=== PATIENT | male | born 1940 | race Caucasian/White ===

== ENCOUNTER 2016-08-18 07:02 | Inpatient (IN) | payer MEDICARE ==
--- NOTE | ~2016-08-18 | DS ---
Discharge Summary [facility] [address] [place]. [address] NAME: LORENZO REGAN : 42 STATUS : DIS IN PAT#: [id number] AGE: 76 ADM/REG DATE : 08/18/16 MR#: [id number] REPORT SERV DATE: 08/23/16 DICTATED BY: ALF HI DATE: 08/23/16 REPORT STATUS : Draft TRANSCRIBED BY: MODL DATE: 08/23/16 ADMISSION DATE: 08/18/2016 DISCHARGE DATE: 08/23/2016 DISCHARGE DIAGNOSES: 1. Small-bowel obstruction, present on admission, resolved. 2. Atrial fibrillation with rapid ventricular response, resolved. 3. Episodes of nonsustained ventricular tachycardia. 4. Coronary artery disease. 5. Hypertension. CONSULTS: 1. General Surgery. 2. Cardiology. PROCEDURES AND IMAGING: Cardiac cath performed on 08/23/2016 was grossly negative. 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 HOSPITAL COURSE: This is a 76-year-old gentleman who was initially admitted with diagnosis of a small-bowel obstruction. For details, please refer to H and P by Dr. Perez, dated 08/18/2016. In summary, the patient was managed conservatively and fortunately, the patient's small bowel obstruction did resolve spontaneously with conservative care alone. The patient was seen by General Surgery, who agreed with conservative management. As the patient was being discharged home on the third day of the hospital stay, the patient actually had a few runs of ventricular tachycardia and then went into atrial fibrillation with RVR. Of note, the patient does have a history of chronic atrial fibrillation. The patient was seen by Cardiology, who decided to perform a cardiac cath, as the patient was having episodes of runs of ventricular tachycardia. The cardiac cath was performed today, 08/23/2016, which was grossly negative. The patient's atrial fibrillation was better controlled and since the patient's ventricular tachycardia were all nonsustained, it was felt that he was still safe for discharge home with close outpatient followup. Otherwise, the patient has stayed hemodynamically stable throughout the entire hospital stay. DISCHARGE MEDICATIONS: No changes. DISPOSITION: Home. FOLLOWUP: 1. Please follow up with PCP in the next one to two weeks. 2. Please follow up with Cardiology in the next one to two weeks. A total of 30 minutes spent in coordinating this patient's discharge today. [facility] [place] Discharge Summary [place] [address] [place] [address] NAME: LORENZO REGAN : 42 STATUS : DIS IN PAT#: [id number] AGE: 76 ADM/REG DATE : 08/18/16 MR#: [id number] REPORT SERV DATE: 08/23/16 DICTATED BY: ALF HI DATE: 08/23/16 REPORT STATUS : Draft TRANSCRIBED BY: RENATO DATE: 08/23/16 Alf Hi MD / [id number] CC: MD Leno Munoz
--- NOTE | ~2016-08-18 | CN ---
Consultation Report [facility] [address] [place]. [address] NAME: LORENZO GONZALEZ : 42 STATUS : ADM IN PAT#: [id number] AGE: 76 ADM/REG DATE : 08/18/16 MR#: [id number] REPORT SERV DATE: 08/18/16 DICTATED BY: MARLO JOHNSON DATE: 08/18/16 REPORT STATUS : Draft TRANSCRIBED BY: MODL DATE: 08/18/16 CONSULT NOTE DATE OF CONSULTATION: REFERRING PHYSICIAN: Dr. Perez. CONSULTING PHYSICIAN: Dr. Johnson. REASON FOR CONSULT: Small bowel obstruction. HISTORY OF PRESENT ILLNESS: Mr. Gonzalez is a very pleasant 76-year-old gentleman, with a significant medical history of coronary artery disease and insulin-dependent diabetes. He states he is feeling well until approximately 10 o'clock last night. He ate dinner normally. He had two bowel movements yesterday. Around 10 o'clock he started to have some pain. He laid down, and then the pain progressed. Around 4 o'clock in the morning, he had significant nausea and vomiting. He has had no diarrhea. He denies any fever or chills. He has not vomited since he has been here, but he states he is still nauseated. His only past surgical history, abdominal surgery is from an appendectomy over 30 years ago. PAST MEDICAL HISTORY: Insulin-dependent diabetes, coronary artery disease with valve replacement, and hypertension. PAST SURGICAL HISTORY: Coronary artery bypass with multiple stent placements and open appendectomy. MEDICATIONS: Tylenol, albuterol, Tums, Flexeril, Cardizem, insulin, iron, hydralazine, Combivent, Isordil, Cozaar, metformin, Zaroxolyn, Toprol, Singulair, Nitrostat, Percocet, OxyContin, Protonix, Xarelto, Crestor, Brilinta, Restoril, and Demadex. FAMILY HISTORY: Coronary artery disease. SOCIAL HISTORY: The patient stopped smoking in 1997. Drinks on occasion. REVIEW OF SYSTEMS: Other than those described above. He has been in his normal state of health and system review was negative. PHYSICAL EXAMINATION: VITAL SIGNS: He is afebrile. Vital signs are stable. GENERAL: He is awake, alert, and pleasant 76-year-old gentleman. HEENT: Grossly normal. NECK: Supple. No palpable masses. HEART: Regular rate and rhythm. Consultation Report [place] [address] [place]. [address] NAME: LORENZO GONZALEZ : 42 STATUS : [facility]#: [id number] AGE: 76 ADM/REG DATE : 08/18/16 MR#: [id number] REPORT SERV DATE: 08/18/16 DICTATED BY: MARLO JOHNSON DATE: 08/18/16 REPORT STATUS : Draft TRANSCRIBED BY: RENATO DATE: 08/18/16 LUNGS: Clear. ABDOMEN: Soft, mildly distended. No peritoneal signs. No masses. No hernias. EXTREMITIES: Show no cyanosis, clubbing, or edema. NEUROLOGIC: Exam is grossly intact. LABORATORY AND DIAGNOSTIC DATA: CT of the abdomen which I have reviewed, shows some distended small bowel, as well as some moderately decompressed distal small bowel. There were no inflammatory changes. There was a significant amount of stool within the colon with a decompressed distal colon. Laboratories reviewed. IMPRESSION: A 76-year-old with the above-mentioned medical issues, now with what sounds like an early small bowel obstruction. He is currently feeling much better. Hopefully, this will resolve without surgical intervention given all his medical history as well as blood thinners. At this point, we are going to hold his blood thinners. We will place an NG tube if his nausea and vomiting continues. If he is not feeling better tomorrow, we will plan a small-bowel follow-through. All this was discussed with him in detail. CAROL/RENATO Marlo Johnson M.D. / [id number] CC: Smith Rosas MICHAEL
--- NOTE | ~2016-08-18 | CN ---
Consultation Report [facility] [address] [place]. [address] NAME: LORENZO REGAN : 42 STATUS : ADM IN PAT#: [id number] AGE: 76 ADM/REG DATE : 08/18/16 MR#: [id number] REPORT SERV DATE: 08/20/16 DICTATED BY: DON MURDOCK DATE: 08/20/16 REPORT STATUS : Draft TRANSCRIBED BY: MODL DATE: 08/20/16 CARDIOLOGY CONSULTATION DATE OF CONSULTATION: 08/20/2016 REASON FOR CONSULTATION: Atrial fibrillation with RVR. HISTORY OF PRESENT ILLNESS: The patient is a pleasant 76-year-old gentleman with a history of coronary artery disease and chronic atrial fibrillation, who was admitted on 08/18/2016 for a small bowel obstruction. The patient had been doing well in his usual state of health when he began having some abdominal pain which progressed and then he developed severe nausea and vomiting. CT scan showed a probable small bowel obstruction. General Surgery was consulted. Fortunately, however, his symptoms have since resolved and no surgical intervention was needed. The patient had some elevated heart rates with the current illness which required a diltiazem drip for rate control. Currently, he is back on his regular home medications including Xarelto, Cardizem CD, and Toprol. Cardizem drip has been reduced to 2.5 mg/hour and his rate is controlled in the 90s. PAST MEDICAL HISTORY: Includes coronary artery disease, status post coronary artery bypass surgery in 1988 with redo in 2001 as well as subsequent stenting. He also has a history of hypertension, hyperlipidemia, chronic atrial fibrillation, type 2 diabetes, COPD, and peripheral vascular disease. PAST SURGICAL HISTORY: Includes the above-mentioned bypass surgeries as well as cardiac stenting. His last cardiac catheterization was done on 11/06/2015, which showed patent grafts to the LAD, second diagonal branch and right posterior descending branch with an acute occlusion of previously stented proximal saphenous vein graft to the posterior lateral branch. The patient underwent successful recanalization and stenting of this graft at that time. SOCIAL HISTORY: The patient quit smoking in 1997. The patient is and helps care for his with Parkinson's. FAMILY HISTORY: Positive for coronary artery disease. REVIEW OF SYSTEMS: The patient reports abrupt onset of nausea and vomiting, but denies any diarrhea or dysuria. Symptoms have since resolved. He reports occasional palpitations with some mild shortness of breath, but nothing progressive. No presyncope or syncope. No recent cough, fever, chills, wheezing, or sputum production. PHYSICAL EXAMINATION: VITAL SIGNS: Blood pressure is 178/81, heart rate is 86 and irregular, and respirations are 16 and unlabored. The patient is afebrile. Consultation Report [place] [address] [place]. [address] NAME: LORENZO REGAN : 42 STATUS : ADM IN PAT#: [id number] AGE: 76 ADM/REG DATE : 08/18/16 MR#: [id number] REPORT SERV DATE: 08/20/16 DICTATED BY: DON MURDOCK DATE: 08/20/16 REPORT STATUS : Draft TRANSCRIBED BY: RENATO DATE: 08/20/16 GENERAL APPEARANCE: The patient is a well-developed, well-nourished white male, in no distress. HEENT: Unremarkable. NECK: Shows no jugular venous distention with good carotid upstroke. CHEST: Clear to auscultation bilaterally. CARDIOVASCULAR: PMI is nondisplaced. S1 is variable, S2 is narrowly split. No gallop is present. ABDOMEN: Soft and nontender with positive bowel sounds. EXTREMITIES: Show no cyanosis, clubbing, or edema. SKIN: Warm and dry with no pallor or icterus. NEURO/PSYCH: The patient is alert and oriented x3 with appropriate affect. LABORATORY AND DIAGNOSTIC DATA: EKG shows atrial fibrillation at a rate of 83 beats per minute with an inferior scar and nonspecific ST-T changes. Chemistry panel from yesterday 08/19/2016 shows a sodium of 142, potassium 4.0, BUN 18, creatinine 0.92. CBC from yesterday shows a white count of 11.6, hemoglobin 8.9, hematocrit 27.8, and platelets 347. The patient had an echocardiogram done last year 11/08/2015, which showed an ejection fraction of 50% as well as dilated left atrium at 5 cm, mild to moderate mitral regurgitation, but otherwise unremarkable. IMPRESSION: 1. Chronic atrial fibrillation with rapid ventricular response in the setting of acute illness. 2. Stable coronary artery disease. 3. Small bowel obstruction, which has resolved. 4. Hypertension. 5. Hyperlipidemia. 6. Diabetes mellitus type 2. 7. Chronic obstructive pulmonary disease. 8. Peripheral vascular disease. PLAN: 1. The patient's home medications of Toprol-XL 25 mg b.i.d., as well as diltiazem CD 240 mg daily have been resumed along with his Xarelto and Brilinta. We will stop the Cardizem drip at this time and watch the patient's heart rate. He does have a history of bradycardia with higher doses of beta blockers, but has done relatively well on low- dose Toprol. He has also seen hospital coordinator, Dr. Oleg Gan, in the past who did not recommend invasive intervention or pacemaker placement at that time. 2. We will monitor the patient's heart rate today off the Cardizem drip and hopefully he will be stable for discharge this evening or tomorrow morning. Thank you very much for this consultation. Consultation Report [place] [id number] [facility] [place]. [address] NAME: LORENZO REGAN : 42 STATUS : ADM IN PAT#: [id number] AGE: 76 ADM/REG DATE : 08/18/16 MR#: [id number] REPORT SERV DATE: 08/20/16 DICTATED BY: DON MURDOCK DATE: 08/20/16 REPORT STATUS : Draft TRANSCRIBED BY: RENATO DATE: 08/20/16 INOCENTE/RENATO Don Murdock NP / [id number] CC: Smith Rosas,SHANTANU Lackey M.D., F.A.C.C.
--- NOTE | ~2016-08-18 | HP ---
History And Physical [place] [id number] [facility] [place]. [address] NAME: LORENZO REGAN : 42 STATUS : ADM IN PAT#: [id number] AGE: 76 ADM/REG DATE : 08/18/16 MR#: [id number] REPORT SERV DATE: 08/18/16 DICTATED BY: ALVINA SOL DATE: 08/18/16 REPORT STATUS : Draft TRANSCRIBED BY: MODL DATE: 08/18/16 DATE OF ADMISSION: 08/18/2016 CHIEF COMPLAINT: Small bowel obstruction. HISTORY OF PRESENT ILLNESS: The patient is a 76-year-old male whose past medical history is significant for coronary artery disease, atrial fibrillation, diabetes mellitus, osteoarthritis, and previous history of vascular disease. He presents today with abdominal pain. He states his symptoms began last evening approximately 10 o'clock. He had had some p.o. intake, went to bed. States he may have had a very small bowel movement at approximately 10:00 p.m. He had a normal large bowel movement at 10:00 a.m. that day. Last evening, he started having some mild cramping when he went to bed. He woke up at approximately 4 or 4:30 this morning with intense pain, cramping, multiple bouts of emesis described as bilious with the later episodes described as undigested food. He is very explicit that he has not had any bowel movement or passed any gas since 10 o'clock last evening. When his symptoms became more severe this morning, he presented to the emergency department. CT scan has noted a small bowel obstruction. The patient states he has had a remote appendectomy as his only abdominal surgery. His cardiac history, although extensive has been relatively stable. Today, he presents with continued nausea, abdominal pain, and white count of 18,000. PAST MEDICAL HISTORY: As covered above. PAST SURGICAL HISTORY: He has had multiple cardiac interventions and stents in the past. CURRENT MEDICATIONS: Tylenol, albuterol inhaler, vitamin C, aspirin 81, Tums, Flexeril 10 daily, Cardizem 240 daily, Radha 0.5/0.4 one per day, iron 325 b.i.d., hydralazine 25 daily, Lantus 10 at bedtime and 15 in the morning, Humalog sliding scale, Combivent inhaler one puff twice daily, Isordil 30, Cozaar 100, metformin 1000 b.i.d., Zaroxolyn 5, Toprol-XL 25 b.i.d., Singulair 10, multivitamin, Nitrostat 0.4, Percocet 5/325 b.i.d., OxyContin 10 at bedtime, Protonix 40, Xarelto 20, Crestor 10, [place] Nasal [place], Refresh eyedrops, Restoril 30, Brilinta 90 b.i.d., Demadex 20, and vitamin B complex with C. ALLERGIES: TO ALDOMET. FAMILY HISTORY: Both parents are . Father had complications of infection from an epidural. Mother from heart problems in her late 80s. SOCIAL HISTORY: Social drinker. Previous smoker, has quit for sometime. REVIEW OF SYSTEMS: HEENT: Negative. CARDIOVASCULAR: Negative. PULMONARY: Negative. GI: As covered in above. : Negative. History And Physical [address] [address] NAME: LORENZO REGAN : 42 STATUS : ADM IN [facility]#: [id number] AGE: 76 ADM/REG DATE : 08/18/16 MR#: [id number] REPORT SERV DATE: 08/18/16 DICTATED BY: ALVINA SOL DATE: 08/18/16 REPORT STATUS : Draft TRANSCRIBED BY: RENATO DATE: 08/18/16 NEUROMUSCULOSKELETAL: As covered in HPI. Otherwise, 14-point review of systems is negative. PHYSICAL EXAMINATION: VITAL SIGNS: BP 150/88, temp 98.2, pulse 99, and respirations 18. GENERAL: He is awake, alert, oriented, and pleasant. HEENT: Normocephalic and atraumatic. He does have some slight conjunctival hemorrhage in the right eye due to his anticoagulants. NECK: Supple. HEART: Irregularly irregular, rate controlled. LUNGS: Clear to auscultation without rhonchi, rales, or wheezes. ABDOMEN: Shows markedly decreased bowel sounds. He has tenderness diffusely to palpation. He does not have a great deal of distention. EXTREMITIES: No clubbing, cyanosis, or edema. NEUROLOGICAL: Exam is grossly intact. LABORATORY DATA: CT of the abdomen as discussed with Dr. Carrillo, small bowel obstruction. Chest x-ray, prior CABG and stent. Sodium 138, potassium 4.2, chloride 99, CO2 of 26, BUN and creatinine 20 and 1.08 with a glucose of 190. Lipase 105. White count 18,000, H and H 9.8 and 29.8, and platelets 375. Lactate has been requested and pending. ASSESSMENT: Small bowel obstruction. PLAN: 1. The patient is admitted. 2. N.p.o. 3. We will be conscious of the amount of time he is off his antiplatelet agents and anticoagulants. 4. Sliding scale insulin. 5. IV medications as needed for blood pressure control. 6. I have placed a consult to Surgery and will speak to them directly concerning his complete obstruction on the CT exam for surgical recommendations if necessary. TLF/MODL Alvina Sol M.D. / [id number] CC: Smith Rosas MICHAEL
--- NOTE | ~2016-08-18 | OP ---
Record Of Operation [facility] [address] [place]. [address] NAME: LORENZO REGAN : 42 STATUS : ADM IN PAT#: [id number] AGE: 76 ADM/REG DATE : 08/18/16 MR#: [id number] REPORT SERV DATE: 08/23/16 DICTATED BY: ODIN MARLOW DATE: 08/23/16 REPORT STATUS : Draft TRANSCRIBED BY: MODL DATE: 08/23/16 DATE OF PROCEDURE: 08/23/2016 INDICATION: Chest pain with history of coronary artery disease, status post redo CABG and subsequent stents, V-tach. PROCEDURE: Left heart catheterization, coronary arteriography, left ventriculography, saphenous vein graft arteriography, left internal mammary artery arteriography, moderate IV sedation. DESCRIPTION OF PROCEDURE: After informed consent was obtained, the patient was taken in a fasting state to the Cardiac Catheterization Laboratory, where he was prepped and draped in sterile fashion. IV moderate sedation was obtained using intravenous Versed and fentanyl. Right inguinal region was anesthetized using 1% Xylocaine. The right femoral artery was then entered using a front wall approach and cannulated with 6-Nigerian arterial sheath. A 6- Nigerian JR4 diagnostic catheter was then used to engage the left internal mammary artery to the mid LAD. Serial angiograms of this vessel were obtained. This catheter was then used to engage the saphenous vein graft to the diagonal artery. Serial angiograms of this vessel were obtained. This catheter was then used to engage the previously stented saphenous vein graft to the posterior lateral artery. Serial angiograms of this vessel were obtained. This catheter was then exchanged for a multipurpose catheter which was used to engage the saphenous vein graft to the posterior descending artery. Serial angiograms of this vessel were obtained. This catheter was then exchanged for a 6-Nigerian JL4 diagnostic catheter which was used to engage the left main coronary artery. Serial angiograms of this vessel were obtained. This catheter was then exchanged for a 6-Nigerian angled pigtail catheter which was used across the aortic valve at which time a left ventriculogram was performed. Results of study are as follows: HEMODYNAMICS: Aorta 147/68 with a mean pressure 104 mmHg. Left ventricle 147/17 with end- diastolic pressure of 23 mmHg. CORONARY ANATOMY: 1. Left main coronary artery: Left main coronary artery arises normally from left coronary cusp. This vessel is normal. 2. Left anterior descending artery: Left anterior descending artery arises normally from left main coronary artery. This vessel is completely occluded just after the takeoff of the first diagonal artery. 3. The left internal mammary artery to the mid LAD is widely patent. 4. The saphenous vein graft to the diagonal branch is widely patent. 5. Left circumflex artery: Left circumflex artery arises normally from left main coronary artery. This vessel is nondominant. This vessel has a first and second obtuse marginal arteries which are occluded. 6. Right coronary artery: The right coronary artery is known to be 100% occluded from previous studies. 7. The saphenous vein graft to the posterior descending artery is widely patent. 8. The previously stented saphenous vein graft to the posterior lateral artery is widely Record Of Operation [place] [id number] [place]. [address] NAME: LORENZO REGAN : 42 STATUS : ADM IN [facility]#: [id number] AGE: 76 ADM/REG DATE : 08/18/16 MR#: [id number] REPORT SERV DATE: 08/23/16 DICTATED BY: ODIN MARLOW DATE: 08/23/16 REPORT STATUS : Draft TRANSCRIBED BY: MODL DATE: 08/23/16 patent. LEFT VENTRICULOGRAM: Left ventriculogram was performed which showed hypokinesis to akinesis of the inferior basilar segment. The remainder of the left ventricle appeared mildly hypokinetic. Ejection fraction is estimated at 40%. There is mild to moderate mitral insufficiency. COMPLICATIONS: There were no apparent complications. CONCLUSIONS: 1. Severe buckland vessel coronary artery disease described above. 2. Patent saphenous vein grafts x3 as described above. 3. Patent NAVA to mid LAD. 4. Regional wall motion abnormalities as described above with moderately depressed left ventricular systolic function. Mild to moderate mitral insufficiency. 5. No apparent complications. SA/MODL Odin Marlow M.D., [facility] / [id number] CC: MD SHANTANU Munoz M.D., F.A.C.C.
[~2016-08-18 07:02] MED LIST: 8 HOUR650 MG PO; ADVAIR100 INH; ADVAIR115P INH; ADVAIR250 INH; AMARYL4 PO; APRES25 PO; ASAB PO; ASTELIN NAS; ATROVENTUD INH; AVANDIA8 MG PO; BACDS PO; BALANCED B PO; BRILINTA90 MG PO; CARDCD240 PO; CARTIA XT240 MG/24 PO; CENTRUM PO; CENTRUM SILVER PO; COMBIVENT RESPIM4 GM INH; COZ50 PO; COZAAR100 MG PO; CRESTOR10 PO; CULTURELLE OTC PO; DEMA10T PO; DEMA20 PO; DEPO-TESTOS100 MG/ML IM; DIGITEK0.25 MG PO; DILT-XR240 MG PO; DIOVAN320 MG PO; DRAMAMINE25 MG PO; EFFIENT10 PO; FERROUS SULF325 M1 PO; FESO4 PO; FISH-EPA1000 MG PO; FLEX PO; FLOMAX4 PO; FLONASE NAS; FORTAMET1000 MG PO; GLUCOPHAGE1000 MG PO; GLUCOV5 PO; GLUMETZA500 MG PO; HALF81 PO; IMDUR30 PO; IMODIUM AD PO; IRON325 MG PO; ISOSORB DIN30 MG PO; JALYN 0.5-0.41 EACH PO; KDUR20 PO; LAN25 PO; LANTUS SC; LANTUSCART SC; LEVAQUIN750 MG PO; LISINOPRIL40 MG PO; LOP100 PO; LORTAB 5 PO; MCZ25 PO; MULTIVIT/MIN PO; MULTIVITAMI1 PO; NEUR300 PO; NITROSTAT0.4 MG SL; NIZORALCRM TOP; NORCO1 TA1 PO; NORV10 PO; OMEGA KRILL OIL PO; OXYCON10 PO; P10; P20 PO; PCET PO; PERCOCET1 TA2 PO; PHENERGAN25 MG/ML; PLAVIX PO; PR12.5 PO; PR25 PO; PRENAVITE PO; PRILO PO; PROAIR HFA INH; PROBIOTIC ACIDOPHILU PO; PROTONIX PO; REG PO; REST15 PO; RESTORIL30 MG PO; SAW PALMETTO PO; SINGULAIR1 PO; SUPER B COMP OR; SUPER B COMP PO; SUPER B-100 PO; T PO; TAMBO50 PO; TOPROL XL200 MG PO; TOPXL100 PO; XARELTO20 MG PO; XOPEN0.5ML INH; XOPENEX1.25 MG/3 INH; ZANTAC150 MG PO; ZOFRAN4 PO; [UNRECOGNIZED DRUG - OTHER] PO
[2016-08-18 08:36] LABS: ASCORBIC ACID (UR NOT ORDER) 20 (NEG); BILIRUBIN, URINE NEGATIVE (NEG); ER URINALYSIS TAT 0 Hrs 12 Mins; KETONE, URINE TRACE MG/DL (NEG); LEUKOCYTE ESTERASE(NOT OR NEG (NEG); NITRITE (URINE) NEG (NEG); WBC (NOT ORDERED) (RFLEX) 1 (0-5)
[2016-08-18 08:37] LABS: BASOPHILS 0.1 %; BASOPHILS ABSOLUTE 0.02 10/3/uL (0.0-0.16); EOSINOPHILS 0.3 %; EOSINOPHILS ABSOLUTE 0.05 10/3/uL (0.0-0.53); HEMATOCRIT 29.8 % (40.0-51.0); HEMOGLOBIN 9.8 g/dL (13.6-17.8); IMMATURE GRANULOCYTES 0.2 %; IMMATURE GRANULOCYTES ABSOLUTE 0.03 10/3/uL (0.0-0.11); LYMPHOCYTES 2.5 %; LYMPHOCYTES ABSOLUTE 0.45 10/3/uL (0.67-4.30); MEAN CORPUS HGB CONC 32.9 g/dL (32.0-36.0); MEAN CORPUSCULAR HEMOGLOB 29.3 pg (26.0-34.0); MEAN PLATELET VOLUME 8.6 fL (9.2-13.0); MONOCYTES 5.2 %; MONOCYTES ABSOLUTE 0.96 10/3/uL (0.21-1.20); NEUTROPHILS 91.7 %; PLATELET COUNT 375 10/3/uL (150-400); RBC DISTRIBUTION WIDTH 15.5 % (12.0-16.0); RED CELL COUNT 3.35 10/6/uL (4.7-6.1)
[2016-08-18 08:42] LABS: ER CBC TAT 0 Hrs 18 Mins; MANUAL DIFF NO %; WHITE BLOOD CELLS 18.3 10/3/uL (4.5-10.5)
[2016-08-18 08:48] LABS: ALBUMIN 3.9 G/DL (3.5-5.0); ALKALINE PHOSPHATASE 96 U/L (45-117); CALCIUM, SERUM 9.4 MG/DL (8.5-10.4); CHLORIDE, SERUM 99 MMOL/L (96-112); CO2 (CARBON DIOXIDE) 26 MMOL/L (24-34); GLOBULIN 3.9 G/DL (2.5-4.1); POTASSIUM, SERUM 4.2 MMOL/L (3.5-5.3); SGPT(ALT) 23 U/L (5-65); SODIUM, SERUM 138 MMOL/L (135-148); TOTAL BILIRUBIN 0.6 MG/DL (0-1.2); TOTAL PROTEIN 7.8 G/DL (6.0-8.5)
[2016-08-18 08:49] LABS: BUN (BLOOD UREA NITROGEN) 20 MG/DL (6-23); CREATININE 1.08 MG/DL (0.70-1.30); GFR AFRICAN AMERICAN 78 ML/MIN (>=60); GFR NON AFRICAN AMERICAN 67 ML/MIN (>=60); GLUCOSE, SERUM 190 MG/DL (60-99); SGOT(AST) 25 U/L (5-40)
[2016-08-18] MEDS ORDERED: LANTUS SC ×2 (10:28)
[2016-08-18] MEDS ORDERED: JALYN 0.5-0.41 EACH PO (10:28)
[2016-08-18] MEDS ORDERED: DEMA20 PO (10:29)
[2016-08-18] MEDS ORDERED: TAZTIA X1 PO (10:29)
[2016-08-18] MEDS ORDERED: TOPXL25 PO (10:29)
[2016-08-18] MEDS ORDERED: FERROUS SULF325 M1 PO (10:30)
[2016-08-18] MEDS ORDERED: FORTAMET1000 MG PO (10:31)
[2016-08-18] MEDS ORDERED: HUMALOG SC (10:31)
[2016-08-18] MEDS ORDERED: ASAB PO (10:31)
[2016-08-18] MEDS ORDERED: BRILINTA90 MG PO (10:31)
[2016-08-18] MEDS ORDERED: LIPOTRIAD1 CAP PO (10:32)
[2016-08-18] MEDS ORDERED: XARELTO20 MG PO (10:32)
[2016-08-18] MEDS ORDERED: COZAAR100 MG PO (10:32)
[2016-08-18] MEDS ORDERED: SINGULAIR1 PO (10:33)
[2016-08-18] MEDS ORDERED: CRESTOR10 PO (10:34)
[2016-08-18] MEDS ORDERED: ISOSORB DIN30 MG PO (10:34)
[2016-08-18] MEDS ORDERED: PROTONIX PO (10:34)
[2016-08-18] MEDS ORDERED: MULTIVIT/MIN PO (10:34)
[2016-08-18] MEDS ORDERED: Z5 PO (10:35)
[2016-08-18] MEDS ORDERED: NITROSTAT0.4 MG SL (10:35)
[2016-08-18] MEDS ORDERED: VITC500 PO (10:35)
[2016-08-18] MEDS ORDERED: ENDOCET1 TAB PO (10:36)
[2016-08-18] MEDS ORDERED: APRES25 PO (10:36)
[2016-08-18] MEDS ORDERED: OXYCON10 PO (10:39)
[2016-08-18] MEDS ORDERED: FLEX PO (10:40)
[2016-08-18] MEDS ORDERED: RESTORIL30 MG PO (10:41)
[2016-08-18] MEDS ORDERED: OCEAN NAS (10:42)
[2016-08-18] MEDS ORDERED: ACET500CAP PO (10:42)
[2016-08-18] MEDS ORDERED: TUMSROLL PO (10:43)
[2016-08-18] MEDS ORDERED: ALBUTEROL0.083 % INH (10:44)
[2016-08-18] MEDS ORDERED: COMBIVENT RESPIM4 GM INH (10:44)
[2016-08-18] MEDS ORDERED: REFRES1 OPH (10:45)
[2016-08-19 09:24] LABS: BASOPHILS 0.3 %; BASOPHILS ABSOLUTE 0.03 10/3/uL (0.0-0.16); EOSINOPHILS 0.5 %; EOSINOPHILS ABSOLUTE 0.06 10/3/uL (0.0-0.53); HEMATOCRIT 27.8 % (40.0-51.0); HEMOGLOBIN 8.9 g/dL (13.6-17.8); IMMATURE GRANULOCYTES 0.1 %; IMMATURE GRANULOCYTES ABSOLUTE 0.01 10/3/uL (0.0-0.11); LYMPHOCYTES 10.7 %; LYMPHOCYTES ABSOLUTE 1.25 10/3/uL (0.67-4.30); MEAN CORPUSCULAR HEMOGLOB 28.4 pg (26.0-34.0); MEAN CORPUSCULAR VOLUME 88.8 fL (80-100); MEAN PLATELET VOLUME 8.5 fL (9.2-13.0); MONOCYTES 6.1 %; MONOCYTES ABSOLUTE 0.71 10/3/uL (0.21-1.20); NEUTROPHILS 82.3 %; NEUTROPHILS ABSOLUTE 9.58 10/3/uL (2.02-8.40); PLATELET COUNT 347 10/3/uL (150-400); RBC DISTRIBUTION WIDTH 16.1 % (12.0-16.0); RED CELL COUNT 3.13 10/6/uL (4.7-6.1); WHITE BLOOD CELLS 11.6 10/3/uL (4.5-10.5)
[2016-08-19 09:25] LABS: MANUAL DIFF NO %
[2016-08-19 09:38] LABS: ALBUMIN 3.4 G/DL (3.5-5.0); ALKALINE PHOSPHATASE 84 U/L (45-117); BUN (BLOOD UREA NITROGEN) 18 MG/DL (6-23); CALCIUM, SERUM 8.9 MG/DL (8.5-10.4); CHLORIDE, SERUM 108 MMOL/L (96-112); CO2 (CARBON DIOXIDE) 23 MMOL/L (24-34); CREATININE 0.92 MG/DL (0.70-1.30); GFR AFRICAN AMERICAN 95 ML/MIN (>=60); GFR NON AFRICAN AMERICAN 82 ML/MIN (>=60); GLOBULIN 3.5 G/DL (2.5-4.1); GLUCOSE, SERUM 192 MG/DL (60-99); SGOT(AST) 15 U/L (5-40); SGPT(ALT) 17 U/L (5-65); SODIUM, SERUM 142 MMOL/L (135-148); TOTAL BILIRUBIN 0.4 MG/DL (0-1.2); TOTAL PROTEIN 6.9 G/DL (6.0-8.5)
[2016-08-21 05:28] LABS: CALCIUM, SERUM 8.7 MG/DL (8.5-10.4); CHLORIDE, SERUM 105 MMOL/L (96-112); CO2 (CARBON DIOXIDE) 24 MMOL/L (24-34); CREATININE 0.82 MG/DL (0.70-1.30); GFR AFRICAN AMERICAN 101 ML/MIN (>=60); GFR NON AFRICAN AMERICAN 87 ML/MIN (>=60); GLUCOSE, SERUM 157 MG/DL (60-99); POTASSIUM, SERUM 3.3 MMOL/L (3.5-5.3); SODIUM, SERUM 139 MMOL/L (135-148)
[2016-08-21 05:29] LABS: BUN (BLOOD UREA NITROGEN) 10 MG/DL (6-23)
[2016-08-22 08:58] LABS: INTERNATIONAL NORMAL RATI 1.3 UNITS (-)
[2016-08-22 08:59] LABS: PARTIAL THROMBO TIME 38.8 SEC (22.5-37.2)
[2016-08-22 09:00] LABS: BASOPHILS 0.3 %; BASOPHILS ABSOLUTE 0.03 10/3/uL (0.0-0.16); EOSINOPHILS 3.2 %; EOSINOPHILS ABSOLUTE 0.33 10/3/uL (0.0-0.53); HEMATOCRIT 25.1 % (40.0-51.0); HEMOGLOBIN 8.1 g/dL (13.6-17.8); IMMATURE GRANULOCYTES 0.1 %; IMMATURE GRANULOCYTES ABSOLUTE 0.01 10/3/uL (0.0-0.11); LYMPHOCYTES 7.6 %; LYMPHOCYTES ABSOLUTE 0.78 10/3/uL (0.67-4.30); MEAN CORPUS HGB CONC 32.3 g/dL (32.0-36.0); MEAN CORPUSCULAR HEMOGLOB 28.7 pg (26.0-34.0); MEAN PLATELET VOLUME 8.5 fL (9.2-13.0); MONOCYTES ABSOLUTE 0.82 10/3/uL (0.21-1.20); NEUTROPHILS 80.8 %; NEUTROPHILS ABSOLUTE 8.31 10/3/uL (2.02-8.40); PLATELET COUNT 281 10/3/uL (150-400); RBC DISTRIBUTION WIDTH 15.6 % (12.0-16.0); RED CELL COUNT 2.82 10/6/uL (4.7-6.1); WHITE BLOOD CELLS 10.3 10/3/uL (4.5-10.5)
[2016-08-22 09:01] LABS: PROTIME (NOT ORD) 15.6 SEC (12.0-14.5)
[2016-08-22 09:02] LABS: MANUAL DIFF NO %
[2016-08-22 09:17] LABS: BUN (BLOOD UREA NITROGEN) 13 MG/DL (6-23); CALCIUM, SERUM 8.8 MG/DL (8.5-10.4); CHLORIDE, SERUM 104 MMOL/L (96-112); CHOLESTEROL 102 MG/DL (< 200); CO2 (CARBON DIOXIDE) 26 MMOL/L (24-34); CREATININE 0.78 MG/DL (0.70-1.30); GFR AFRICAN AMERICAN 103 ML/MIN (>=60); GFR NON AFRICAN AMERICAN 89 ML/MIN (>=60); POTASSIUM, SERUM 3.7 MMOL/L (3.5-5.3); SODIUM, SERUM 140 MMOL/L (135-148)
[2016-08-22 09:18] LABS: CHOL/HDL RATIO(NOT ORDER) 1.9 (0-5); GLUCOSE, SERUM 121 MG/DL (60-99); HDL CHOLESTEROL 55 MG/DL (> 39); LDL CHOLESTEROL 33 MG/DL (< 130); NON-HDL CHOLESTEROL 47 MG/DL (< 160); TRIGLYCERIDE 70 MG/DL (< 150)
[2016-08-23 01:53] LABS: BASOPHILS 0.3 %; BASOPHILS ABSOLUTE 0.03 10/3/uL (0.0-0.16); EOSINOPHILS 4.2 %; EOSINOPHILS ABSOLUTE 0.38 10/3/uL (0.0-0.53); HEMOGLOBIN 7.2 g/dL (13.6-17.8); IMMATURE GRANULOCYTES 0.1 %; IMMATURE GRANULOCYTES ABSOLUTE 0.01 10/3/uL (0.0-0.11); LYMPHOCYTES 11.3 %; LYMPHOCYTES ABSOLUTE 1.03 10/3/uL (0.67-4.30); MEAN CORPUS HGB CONC 32.7 g/dL (32.0-36.0); MEAN CORPUSCULAR HEMOGLOB 29.1 pg (26.0-34.0); MEAN CORPUSCULAR VOLUME 89.1 fL (80-100); MEAN PLATELET VOLUME 8.4 fL (9.2-13.0); MONOCYTES 8.2 %; MONOCYTES ABSOLUTE 0.75 10/3/uL (0.21-1.20); NEUTROPHILS 75.9 %; PLATELET COUNT 261 10/3/uL (150-400); RBC DISTRIBUTION WIDTH 15.5 % (12.0-16.0); RED CELL COUNT 2.47 10/6/uL (4.7-6.1); WHITE BLOOD CELLS 9.1 10/3/uL (4.5-10.5)
[2016-08-23 01:54] LABS: MANUAL DIFF NO %
[2016-08-23 02:20] LABS: INTERNATIONAL NORMAL RATI 1.3 UNITS (-); PROTIME (NOT ORD) 15.8 SEC (12.0-14.5)
[2016-08-23 02:33] LABS: CALCIUM, SERUM 8.7 MG/DL (8.5-10.4); CHLORIDE, SERUM 106 MMOL/L (96-112); CHOL/HDL RATIO(NOT ORDER) 1.9 (0-5); CHOLESTEROL 93 MG/DL (< 200); CO2 (CARBON DIOXIDE) 29 MMOL/L (24-34); CREATININE 0.89 MG/DL (0.70-1.30); GFR AFRICAN AMERICAN 98 ML/MIN (>=60); GFR NON AFRICAN AMERICAN 84 ML/MIN (>=60); HDL CHOLESTEROL 50 MG/DL (> 39); LDL CHOLESTEROL 30 MG/DL (< 130); NON-HDL CHOLESTEROL 43 MG/DL (< 160); POTASSIUM, SERUM 4.1 MMOL/L (3.5-5.3); SODIUM, SERUM 141 MMOL/L (135-148); TRIGLYCERIDE 66 MG/DL (< 150)
[2016-08-23 02:34] LABS: BUN (BLOOD UREA NITROGEN) 18 MG/DL (6-23); GLUCOSE, SERUM 215 MG/DL (60-99)
[2016-08-23] MEDS ORDERED: LIPITOR20 PO (15:41)
[2016-08-23] MEDS ORDERED: AVODART PO (15:42)
[2016-10-17] MEDS ORDERED: OCUFLOX OPH (10:41)
[2016-10-17] MEDS ORDERED: PREDMILDOP OPH (10:42)
[2016-10-17] MEDS ORDERED: ACULAR OPH (10:42)
[2017-02-27] MEDS ORDERED: ASAB PO (20:35)
[2017-02-27] MEDS ORDERED: PLAVIX PO (20:36)
[2017-02-27] MEDS ORDERED: FLEX PO (20:36)
[2017-02-27] MEDS ORDERED: B COMPLETE PO (20:36)
[2017-02-27] MEDS ORDERED: SACU1TAB7 PO (20:37)
[2017-02-27] MEDS ORDERED: CARTIA XT240 MG/24 PO (20:37)
[2017-02-27] MEDS ORDERED: HUMALOG SC (20:38)
[2017-02-27] MEDS ORDERED: DUONEB INH (20:38)
[2017-02-27] MEDS ORDERED: FESO4 PO (20:38)
[2017-02-27] MEDS ORDERED: FORTAMET1000 MG PO (20:39)
[2017-02-27] MEDS ORDERED: ISOSORB DIN30 MG PO (20:39)
[2017-02-27] MEDS ORDERED: LANTUS SC (20:39)
[2017-02-27] MEDS ORDERED: REG PO (20:40)
[2017-02-27] MEDS ORDERED: TOPXL25 PO (20:41)
[2017-02-27] MEDS ORDERED: Z5 PO (20:41)
[2017-02-27] MEDS ORDERED: NITROSTAT0.4 MG SL (20:42)
[2017-02-27] MEDS ORDERED: CENTRUM PO (20:42)
[2017-02-27] MEDS ORDERED: SINGULAIR1 PO (20:42)
[2017-02-27] MEDS ORDERED: PROTONIX PO (20:43)
[2017-02-27] MEDS ORDERED: PERCOCET 7.5/321 TAB PO (20:43)
[2017-02-27] MEDS ORDERED: OXYCON20 PO (20:43)
[2017-02-27] MEDS ORDERED: DEMA20 PO (20:44)
[2017-02-27] MEDS ORDERED: CRESTOR10 PO (20:44)
[2017-02-27] MEDS ORDERED: RESTORIL30 MG PO (20:44)
[2017-02-27] MEDS ORDERED: FLOMAX4 PO (20:44)
[2017-02-27] MEDS ORDERED: XARELTO20 MG PO (20:45)
[2017-02-27] MEDS ORDERED: ACET500CAP PO (20:45)
[2017-02-27] MEDS ORDERED: JALYN 0.5-0.41 EACH PO (20:45)
== END 2016-08-23 17:49 | disposition home or self-care (01) | DRG 389 ==
LOC: ER 07:02 → 4SO 10:01
PROVIDERS: Emergency Medicine; Internal Medicine; Internal Medicine Interventional Cardiology; Nurse Practitioner Family
PROC: B2181ZZ Fluoroscopy of Left Internal Mammary Bypass Graft using Low Osmolar Contrast (ICD-10-PCS; principal; 2016-08-23)
PROC: B2111ZZ Fluoroscopy of Multiple Coronary Arteries using Low Osmolar Contrast (ICD-10-PCS; principal; 2016-08-23)
PROC: B2131ZZ Fluoroscopy of Multiple Coronary Artery Bypass Grafts using Low Osmolar Contrast (ICD-10-PCS; principal; 2016-08-23)
PROC: 4A023N7 Measurement of Cardiac Sampling and Pressure, Left Heart, Percutaneous Approach (ICD-10-PCS; principal; 2016-08-23)
PROC: B2151ZZ Fluoroscopy of Left Heart using Low Osmolar Contrast (ICD-10-PCS; principal; 2016-08-23)
DX: K56.60 Unspecified intestinal obstruction (principal); I47.2 Ventricular tachycardia; I48.2 Chronic atrial fibrillation; J44.9 Chronic obstructive pulmonary disease, unspecified; I25.10 Atherosclerotic heart disease of native coronary artery without angina pectoris; E11.9 Type 2 diabetes mellitus without complications; E78.5 Hyperlipidemia, unspecified; D64.9 Anemia, unspecified; M19.90 Unspecified osteoarthritis, unspecified site; Z88.8 Allergy status to other drugs, medicaments and biological substances; Z87.891 Personal history of nicotine dependence; Z95.5 Presence of coronary angioplasty implant and graft; Z95.1 Presence of aortocoronary bypass graft; Z79.01 Long term (current) use of anticoagulants; I73.9 Peripheral vascular disease, unspecified; Z79.4 Long term (current) use of insulin; Z79.84 Long term (current) use of oral hypoglycemic drugs; Z79.891 Long term (current) use of opiate analgesic; I34.0 Nonrheumatic mitral (valve) insufficiency
CPT/HCPCS: 71010; 74176; 80048; 80053; 80061; 81001; 82962; 83605; 83690; 83735; 83880; 84132; 84145; 85025; 85610; 85730; 93005; 93459; 94640; 96374; 99152; 99291; A9270-GY; C1769; C1894; J0360; J1170; J1200; J1980; J2250; J2405; J3010; Q9967